=== PATIENT | female | born 1985 | race Caucasian/White ===

== ENCOUNTER 2016-11-07 22:04 | Emergency (ER) | payer OTHER ==
[~2016-11-07] VITALS: Ht 149.9 cm; Wt 71.5 kg
[~2016-11-07 22:04] MED LIST: CYCL-319 PO; IBUP-1542 PO
[2016-11-07 22:10] VITALS: Ht 149.9 cm; Wt 71.5 kg
[2016-11-07 23:36] LABS: ADD SCAN DIFF NO
[2016-11-07 23:40] LABS: HEMATOCRIT 38.6 % (37.0-47.0); HEMOGLOBIN 12.6 g/dl (12.0-16.0); MEAN CORPUSCULAR HEMOGLOBIN 29.2 pg (29.0-33.0); MEAN CORPUSCULAR HGB CONC 32.6 g/dl (32.0-37.0); MEAN CORPUSCULAR VOLUME 89.4 fl (82.0-101.0); PLATELET COUNT 375 10^3/UL (140-415); RED BLOOD COUNT 4.32 10^6/ul (4.20-5.40); RED CELL DISTRIBUTION WIDTH 13.8 % (11.5-14.5)
[2016-11-07 23:50] LABS: ADD UMIC NO; UR ASCORBIC ACID NEGATIVE (NEGATIVE); UR BILIRUBIN (Dip) NEGATIVE (NEGATIVE); UR BLOOD (Dip) NEGATIVE (NEGATIVE); UR CLARITY CLEAR (CLEAR); UR COLOR COLORLESS (YELLOW); UR GLUCOSE (Dip) NEGATIVE (NEGATIVE); UR KETONES (Dip) NEGATIVE (NEGATIVE); UR LEUKOCYTE ESTERASE (Dip) NEGATIVE Leu/ul (NEGATIVE); UR NITRITE (Dip) NEGATIVE (NEGATIVE); UR SPECIFIC GRAVITY (Dip) 1.005 (1.003-1.030); UR TOTAL PROTEIN (Dip) NEGATIVE (NEGATIVE); UR UROBILINOGEN (Dip) NEGATIVE (NEGATIVE)
--- NOTE | 2016-11-08 00:26 | RADRPT ---
PROCEDURE: US OB. CLINICAL INDICATION: . Vaginal bleeding. TECHNIQUE: Multiple sonographic images of the pelvis were obtained. Transabdominal and transvagin al views of the pelvis are available for review. The images were reviewed on a PACS workstation. COMPARISON: No prior studies are available for comparison. FINDINGS: No intrauterine gestational sac, pole or heart motion is identified. The endometrium is thick ened and mildly heterogeneous at 1.4 cm. Uterus is otherwise unremarkable. The ovaries are normal in size and echogenicity with normal vascular flow. The adnexa are unremarkable. There is no free f luid. IMPRESSION: No live intrauterine identified. Thickened endometrium. Considerations include a missed , early intrauterine and ectopic . No adnexal mass or free fluid to sugg est ectopic . RPTAT: HMVK .Davy Noonan MD, Date Time Electronically viewed and signed by .Davy Noonan MD, on 11/08/2016 00:25 .K/
[2016-11-08 01:42] LABS: LYMPHOCYTES # 3.6 10^3/ul (0.8-2.9); MONOCYTE # 0.3 10^3/ul (0.3-0.9); NEUTROPHIL # 9.1 10^3/ul (1.6-7.5)
[2016-11-08 02:00] VITALS: BP 119/81; PULSE 73; RESP 16
--- NOTE | 2016-11-08 02:52 | ERD ---
ER Documentation Chief Complaint Date/Time DATE: 11/08/16 TIME: 02:36 Chief Complaint Pt reports pinkness when wiping HPI Patient is a 30-year-old female, G2, P1, who presents the emergency department for concerns of light vaginal bleeding which started approximately 2 hours ago. Patient denies using any pads or liners at this time. Patient denies any pelvic pain or abdominal pain. Patient denies any fevers, chills, nausea, vomiting or loss of consciousness. Patient states her last menstrual period was on 09-19-16. She states that she has ultrasound pending for next week. Patient does not recall the name of her HOME HEALTH TRAVEL PT. ROS All systems reviewed and are negative except as per history of present illness. Medications Home Meds Active Scripts Cyclobenzaprine Hcl* (Cyclobenzaprine Hcl*) 10 Mg Tablet, 10 MG PO TID, #20 TAB Prov:ANEESH BERNAL MD 12/18/15 Ibuprofen* (Motrin*) 600 Mg Tab, 600 MG PO Q6, #20 TAB Prov:ANEESH BERNAL MD 12/18/15 Allergies Allergies: Coded Allergies: No Known Drug Allergies (Verified Allergy, Unknown, 07/04/14) PMhx/Soc History of Surgery: No Anesthesia Reaction: No Hx Neurological Disorder: No Hx Respiratory Disorders: No Hx Cardiac Disorders: No Hx Psychiatric Problems: No Hx Miscellaneous Medical Probl: No Hx Alcohol Use: No Hx Substance Use: No Hx Tobacco Use: No Smoking Status: Never smoker Physical Exam Vitals Vital Signs Date Time Temp Pulse Resp B/P Pulse Ox O2 Delivery O2 Flow Rate FiO2 11/08/16 02:00 73 16 119/81 95 Room Air 11/07/16 22:10 97.8 98 18 131/80 100 Physical Exam GENERAL: Well-developed, well-nourished female. Appears in no acute distress. Speaking in full sentences. HEAD: Normocephalic, atraumatic. EYES: Pupils are equally reactive bilaterally. EOMs grossly intact. No conjunctival erythema. ENT: Moist mucous membranes. No uvula deviation. No kissing tonsils. NECK: Supple. No meningismus. Normal range of motion of the neck. LUNG: Clear to auscultation bilaterally. No rhonchi, wheezing, rales or coarse breath sounds. HEART: Regular rate and rhythm. No murmurs, rubs or gallops. ABDOMEN: Soft, nontender, and nondistended. Positive bowel sounds in all four quadrants. No rebound tenderness, no guarding. (-) McBurney's point tenderness. No CVA tenderness. EXTREMITIES: Equal pulses bilaterally. No peripheral clubbing, cyanosis or edema. No unilateral leg swelling. NEUROLOGIC: Alert and oriented. Moving all four extremities without any difficulty. Normal speech. Steady gait. SKIN: Normal color. Warm and dry. No rashes or lesions. Result Diagram: 11/07/16 2316 Results 24 hrs Laboratory Tests Test 11/07/16 23:16 White Blood Count 13.010^3/ul Red Blood Count 4.3210^6/ul Hemoglobin 12.6g/dl Hematocrit 38.6% Mean Corpuscular Volume 89.4fl Mean Corpuscular Hemoglobin 29.2pg Mean Corpuscular Hemoglobin Concent 32.6g/dl Red Cell Distribution Width 13.8% Platelet Count 46771^3/UL Mean Platelet Volume 9.0fl Neutrophils % 70.0% Lymphocytes % 28.0% Monocytes % 2.0% Neutrophils # 9.110^3/ul Lymphocytes # 3.610^3/ul Monocytes # 0.310^3/ul Urine Color COLORLESS Urine Clarity CLEAR Urine pH 7.0 Urine Specific [place] 1.005 Urine Ketones NEGATIVEmg/dL Urine Nitrite NEGATIVEmg/dL Urine Bilirubin NEGATIVEmg/dL Urine Urobilinogen NEGATIVEmg/dL Urine Leukocyte Esterase NEGATIVELeu/ul Urine Hemoglobin NEGATIVEmg/dL Urine Glucose NEGATIVEmg/dL Urine Total Protein NEGATIVEmg/dl Beta HCG, Quantitative 1843.3mIU/ml Procedures/MDM ED COURSE: The patient was stable throughout ED course. I kept the patient and/or family informed of laboratory and diagnostic imaging results throughout the ED course. DIAGNOSTIC IMAGING: Read by radiologist. Patient: PARAM WILL : 1985 Age: 30 Sex: F MR #: [id number] DOS: 11/07/16 2300 Ordering MD: ISRRAEL BROWN PA-C Location: [facility] Room/Bed: PROCEDURE: US OB. CLINICAL INDICATION: . Vaginal bleeding. TECHNIQUE: Multiple sonographic images of the pelvis were obtained. Transabdominal and transvaginal views of the pelvis are available for review. The images were reviewed on a PACS workstation. COMPARISON: No prior studies are available for comparison. FINDINGS: No intrauterine gestational sac, pole or heart motion is identified. The endometrium is thickened and mildly heterogeneous at 1.4 cm. Uterus is otherwise unremarkable. The ovaries are normal in size and echogenicity with normal vascular flow. The adnexa are unremarkable. There is no free fluid. IMPRESSION: No live intrauterine identified. Thickened endometrium. Considerations include a missed , early intrauterine and ectopic . No adnexal mass or free fluid to suggest ectopic . RPTAT: HMVK .Davy Noonan MD, MD Date Time Electronically viewed and signed by .Davy Noonan MD, on 11/08/2016 00:25 .K/ CC: ISRRAEL BROWN PA-C MEDICAL DECISION MAKING: This is a 30-year-old female who presents to the ED for concerns of light vaginal bleeding. She states her last menstrual period was on . Vital signs were reviewed. Patient was afebrile. Patient was hemodynamically stable. Urine test was positive. Quantitative b-HCG was 1843. Patient was O+. No Rhogam was given. CBC showed no evidence of severe anemia. Patient's white count was noted to be slightly elevated at 13K. Urinalysis was negative for acute infection or blood. Pelvic US showed No live intrauterine identified. Thickened endometrium. Considerations include a missed , early intrauterine and ectopic . No adnexal mass or free fluid to suggest ectopic . Given that patient did have beta-hCG level above the discriminatory zone of above 1500, I contacted to the laborist hospice care transitions coordinator. I spoke to Dr. Mo. At this time, there is no indication for admission or inpatient workup. Patient will be discharged with instructions to return in 2 days for repeat beta-hCG and pelvic ultrasound given that ectopic cannot be ruled out at this time. Patient can either return to the ED or follow up with her HOME HEALTH TRAVEL PT. Patient understands and agrees with this plan. Given these findings, the patient 's presentation is most consistent with threatened . Unable to rule out ectopic versus ruptured ectopic at this time. Low suspicion for molar , subchorionic hematoma, spontaneous , incomplete , complete , missed , placental abruption, placental previa, vasa previa, uterine rupture, anembyronic . DISCHARGE: At this time, patient is stable for discharge and outpatient management. Patient given a copy of all blood work and imaging studies obtained today. I had a conversation at length with the patient about the concerns of vaginal bleeding during the 1st trimester of . Patient and/or family understands that her vaginal bleeding can be a normal finding or a sign of miscarriage. I have instructed the patient to follow-up with her OBGYN in 1-2 days for further monitoring including a repeat b-HCG level. I have instructed the patient to promptly return to the ER at any time for any new or worsening symptoms including increased pain, nausea, vomiting, continued bleeding, weakness, syncope or fever. The patient and/or family expressed understanding of and agreement with this plan. All questions were answered. Home care instructions were provided. Departure Diagnosis: Primary Impression: Vaginal bleeding in patient at less than 20 weeks ges... Condition: Stable Patient Instructions: Bleeding During Early Referrals: COMMUNITY CLINICS YOU HAVE RECEIVED A MEDICAL SCREENING EXAM AND THE RESULTS INDICATE THAT YOU DO NOT HAVE A CONDITION THAT REQUIRES URGENT TREATMENT IN THE EMERGENCY DEPARTMENT. FURTHER EVALUATION AND TREATMENT OF YOUR CONDITION CAN WAIT UNTIL YOU ARE SEEN IN YOUR DOCTORS OFFICE WITHIN THE NEXT 1-2 DAYS. IT IS YOUR RESPONSIBILITY TO MAKE AN APPOINTMENT FOR FOLOW-UP CARE. IF YOU HAVE A PRIMARY DOCTOR --you should call your primary doctor and schedule an appointment IF YOU DO NOT HAVE A PRIMARY DOCTOR YOU CAN CALL OUR PHYSICIAN REFERRAL HOTLINE AT IF YOU CAN NOT AFFORD TO SEE A PHYSICIAN YOU CAN CHOSE FROM THE FOLLOWING [facility] [address] [facility] [address] [facility] [facility] [address] [facility] [address] [facility] [address] [facility]. [facility] [address] [facility]. [facility] YOU HAVE RECEIVED A MEDICAL SCREENING EXAM AND THE RESULTS INDICATE THAT YOU DO NOT HAVE A CONDITION THAT REQUIRES URGENT TREATMENT IN THE EMERGENCY DEPARTMENT. FURTHER EVALUATION AND TREATMENT OF YOUR CONDITION CAN WAIT UNTIL YOU ARE SEEN IN YOUR DOCTORS OFFICE WITHIN THE NEXT 1-2 DAYS. IT IS YOUR RESPONSIBILITY TO MAKE AN APPOINTMENT FOR FOLOW-UP CARE. IF YOU HAVE A PRIMARY DOCTOR --you should call your primary doctor and schedule and appointment IF YOU DO NOT HAVE A PRIMARY DOCTOR YOU CAN CALL OUR PHYSICIAN REFERRAL HOTLINE AT . IF YOU CAN NOT AFFORD TO SEE A PHYSICIAN YOU CAN CHOSE FROM THE FOLLOWING [facility] INSTITUTIONS: [facility] [address] [place] [address] [facility] [address] [place] [address] [facility] + [facility] [address] [place] [address] [facility] [place] [address] [facility] [address] [place], [place] [phone] OFFICE FAX YUMIKO KNOWLESNICA [address] [place], [place] [id number] [facility] [address] [place] [address] VALERIANO MEJIA [address], [address], [facility] [address] [address] [place], [place] [phone] [facility] [address] [place], [place] [address] [address] [facility] [address] - [place] [address] [facility] [address] [address], [place] [address] [facility]. [address], [facility] [phone] MARQUISE ABRAMS [address] [place] [address] Additional Instructions: Call your primary care doctor/OBGYN TOMORROW for an appointment during the next 1-2 days.See the doctor sooner or return here if your condition worsens before your appointment time. Unable to rule out ectopic at this time. You will need to have a repeat beta-hCG in 2 days. Return here follow-up with your HOME HEALTH TRAVEL PT. ISRRAEL BROWN PA-C Nov 08, 2016 02:51
== END 2016-11-08 02:01 | disposition home or self-care (01) ==
LOC: FTE 22:04
DX: O20.9 Hemorrhage in early pregnancy, unspecified (principal); Z3A.08 8 weeks gestation of pregnancy
CPT/HCPCS: 36415; 76801; 76817; 81003; 84702; 85025; 86900; 86901; Z7502